=== PATIENT | female | born 1945 | race Caucasian/White ===

== ENCOUNTER 2016-08-13 12:24 | Outpatient (CLI) | payer OTHER ==
--- NOTE | 2016-08-18 10:42 | DIAGNOSTIC IMAGING REPORT ---
REFERRING PHYSICIAN/PROVIDER: Siena Vincent MD CONSULTING ADVANCED PRACTICE PROVIDER: Mikey Mcgarry MD PROCEDURE: M-mode 2D echocardiography with spectral and color flow Doppler INDICATION: CHRONIC AFIB Procedure: A two-dimensional transthoracic echocardiogram with color flow and Doppler was performed. The study quality was technically adequate. The patient was in atrial fibrillation with controlled ventricular rate during the exam. Left Ventricle: The left ventricle is normal in size. There is mild concentric left ventricular hypertrophy. Left ventricular systolic function is normal. The ejection fraction is estimated to be 55-60%. There are no obvious focal wall motion abnormalities noted but poor endocardial definition reduces the sensitivity for the detection of such. Diastolic function could not be accurately assessed due to atrial fibrillation. Right Ventricle: The right ventricle is not well visualized. The right ventricle grossly appears normal in size with probable normal systolic function. Atria: The left atrium is mildly dilated. The right atrium grossly appears normal in size. The interatrial septum is intact with no evidence for an atrial septal defect. Mitral Valve: The mitral valve is normal in structure but abnormal in function. There is trace mitral regurgitation. Aortic Valve: The aortic valve is trileaflet. The aortic valve opens well. There is no aortic regurgitation. Tricuspid Valve: The tricuspid valve is normal in structure and function. There is a trace or physiologic amount of tricuspid regurgitation. Pulmonary artery pressures cannot be estimated because of the lack of a measurable TR jet velocity. Pulmonic Valve: The pulmonic valve is normal in structure and function. There is a trace or physiologic amount of pulmonic regurgitation. There is no significant valvular heart disease. Great Vessels: The aortic root is normal size. The ascending aorta is mildly enlarged. It measures at 3.9 cm. The IVC is of normal diameter and collapses greater than 50% with a sniff. This suggests a low right atrial pressure of 3 mm Hg. Pericardium/ Pleura There is no pericardial effusion. IMPRESSION: There is mild concentric left ventricular hypertrophy. Left ventricular systolic function is normal. The ejection fraction is estimated to be 55-60%. There are no obvious focal wall motion abnormalities noted but poor endocardial definition reduces the sensitivity for the detection of such. The right ventricle is not well visualized. The right ventricle grossly appears normal in size with probable normal systolic function. Pulmonary artery pressures cannot be estimated because of the lack of a measurable TR jet velocity. The left atrium is mildly dilated. The right atrium grossly appears normal in size. There is no significant valvular heart disease. The ascending aorta is mildly enlarged.
== END 2016-08-13 23:00 ==
LOC: US SRH 12:24
DX: I48.2 Chronic atrial fibrillation (principal)

== ENCOUNTER 2016-08-14 12:19 | Outpatient (CLI) | payer OTHER ==
--- NOTE | 2016-08-26 17:33 | DIAGNOSTIC IMAGING REPORT ---
REFERRING PHYSICIAN/PROVIDER: Carlton ATTENDING PHYSICIAN/PROVIDER: Dr. Espinosa CONSULTING PASTING MACHINE OFFBEARER: Siena Vincent MD PROCEDURE PERFORMED: Pharmacologic stress test with myocardial perfusion imaging and quantitative gated SPECT to evaluate wall motion and left ventricular systolic function. INDICATION: CHRONIC AFIB RADIOPHARMACEUTICAL: Stress dose 31 mCi Tc99 Sestamibi Rest dose 33 mCi of Tc 99 Sestamibi PROCEDURAL DETAILS: Following informed consent Lexiscan was infused per protocol. No significant ST-segment changes. No chest pain or ectopy. ECG DATA: Rest EKG demonstrated eighth rib with controlled heart rate ( 97 beats per minute) RAW DATA: Normal myocardial tracer uptake. Lung heart ratio is normal. T.i.d. is normal at 0.68. QUANTITATIVE GATED SPECT: Unreliable due to difficulty gating in the setting of underlying atrial fibrillation MYOCARDIAL PERFUSION STUDY: Personal review of filtered back projection and iterative reconstruction slices, there is no evidence of ischemia or prior infarct. IMPRESSION: Normal pharmacologic stress test with myocardial perfusion imaging. No evidence of ischemia or prior infarct. Normal wall motion and left ventricular systolic function. Atrial fibrillation previously documented. No prior study available for comparison
--- NOTE | 2016-08-26 17:33 | DIAGNOSTIC IMAGING REPORT ---
REFERRING PHYSICIAN/PROVIDER: Carlton ATTENDING PHYSICIAN/PROVIDER: Dr. Espinosa CONSULTING DEVELOPER RELATIONS MANAGER: Siena Vincent MD PROCEDURE PERFORMED: Pharmacologic stress test with myocardial perfusion imaging and quantitative gated SPECT to evaluate wall motion and left ventricular systolic function. INDICATION: CHRONIC AFIB RADIOPHARMACEUTICAL: Stress dose 31 mCi Tc99 Sestamibi Rest dose 33 mCi of Tc 99 Sestamibi PROCEDURAL DETAILS: Following informed consent Lexiscan was infused per protocol. No significant ST-segment changes. No chest pain or ectopy. ECG DATA: Rest EKG demonstrated eighth rib with controlled heart rate ( 97 beats per minute) RAW DATA: Normal myocardial tracer uptake. Lung heart ratio is normal. T.i.d. is normal at 0.68. QUANTITATIVE GATED SPECT: Unreliable due to difficulty gating in the setting of underlying atrial fibrillation MYOCARDIAL PERFUSION STUDY: Personal review of filtered back projection and iterative reconstruction slices, there is no evidence of ischemia or prior infarct. IMPRESSION: Normal pharmacologic stress test with myocardial perfusion imaging. No evidence of ischemia or prior infarct. Normal wall motion and left ventricular systolic function. Atrial fibrillation previously documented. No prior study available for comparison
== END 2016-08-14 23:00 ==
LOC: RT SRH 12:19
PROC: 4A02XM4 Measurement of Cardiac Total Activity, External Approach (ICD-10-PCS; principal; 2016-08-14)
PROC: 3E073KZ Introduction of Other Diagnostic Substance into Coronary Artery, Percutaneous Approach (ICD-10-PCS; 2016-08-14)
DX: I48.2 Chronic atrial fibrillation (principal)